=== PATIENT | female | born 1955 | race Caucasian/White ===

== ENCOUNTER 2020-05-10 02:35 | Inpatient (IN) ==
[2020-05-10] MEDS ORDERED: Naloxone 0.4 MG/ML INJ IVP PRN (07:54)
[2020-05-10] MEDS ORDERED: *HR* HYDROcodone/Acet 5/325 mg TABLET PO PRN (07:54)
[2020-05-10] MEDS ORDERED: Ondansetron 4 MG/2 ML VIAL IVP PRN (07:54)
[2020-05-10] MEDS ORDERED: Acetaminophen 325 MG TABLET PO PRN (07:54)
[2020-05-10] MEDS ORDERED: *HR* OxyCODONE Immed Rel 5 MG TABLET PO PRN (07:54)
[2020-05-10] MEDS ORDERED: Dextrose Gel 15 GM/37.5 ML TUBE PO PRN ×2 (07:57)
[2020-05-10] MEDS ORDERED: *HR* Dextrose 50 % in Water (Vial) 50 ML VIAL IVP PRN (07:57)
[2020-05-10] MEDS ORDERED: D5% in Water 1,000 ML IVC PRN (07:57)
[2020-05-10 08:53] LABS: Basophils % 0.2 %; Eosinophils % 0.3 %; Hematocrit 39.9 % (35.3-44.9); Hemoglobin 12.7 g/dL (11.5-15.4); Immature Granulocytes % 0.3 % (0-4); Lymphocytes # 3.9 K/mcL (0.6-4.6); Lymphocytes % 27.7 %; Mean Corpuscular HGB Conc 31.8 g/dL (31.6-35.5); Mean Corpuscular Hemoglobin 30.8 pg (28.0-33.3); Mean Corpuscular Volume 96.8 fL (83.0-100.0); Mean Platelet Volume 9.9 fL (9.4-12.4); Monocytes # 2.1 K/mcL (0.0-1.3); Neutrophils # 7.9 K/mcL (1.6-8.9); Platelet Count 325 K/mcL (140-400); Red Blood Count 4.12 M/mcL (3.82-4.97); Red Cell Distribution Width 14.2 % (11.5-14.5); Segmented Neutrophils % 56.5 %
[2020-05-10 09:17] LABS: BUN/Creatinine Ratio 15 (6-26); Blood Urea Nitrogen 15 mg/dL (8-23); Carbon Dioxide 28 mEq/L (23-29); Chloride 102 mEq/L (98-107); Glucose 163 mg/dL (70-105); Osmolality,Calculated 286 (280-300); Potassium 4.3 mEq/L (3.5-5.1); Sodium 136 mEq/L (136-145); eGFR For African Americans > 60 (> 60); eGFR For Non-African Americans 57 (> 60)
[2020-05-10] MEDS ORDERED: *HR* HYDROmorphone 2 MG/ML SYRINGE IVP PRN (11:24)
[2020-05-10] MEDS: Gabapentin 100 MG CAPSULE PO SCH ×3 (11:30→20:01)
[2020-05-10] MEDS: Insulin LISPRO 300 UNITS/3 ML VIAL SQ SCH ×2 (11:30→17:09)
[2020-05-10] MEDS: *HR* HYDROcodone/Acet 7.5/325 mg TABLET PO SCH ×2 (12:07→17:11)
[2020-05-10] MEDS ORDERED: Gadolinium Contrast Agent (WT Based) IV PRN (12:22)
[2020-05-10 12:44] LABS: INR 3.1; Prothrombin Time 35.6 Seconds (9.4-12.1)
[2020-05-10] MEDS ORDERED: *HR* Heparin 5,000 UNIT/ML VIAL SQ SCH (18:00)
[2020-05-10] MEDS ORDERED: *HR* Warfarin 4 MG TABLET PO ONE (18:00)
[2020-05-10] MEDS ORDERED: Warfarin perPT PO PRN (18:00)
[2020-05-10] MEDS: predniSONE 20 MG TABLET PO SCH (18:04)
[2020-05-11] MEDS: *HR* HYDROcodone/Acet 7.5/325 mg TABLET PO SCH ×5 (00:25→23:42)
[2020-05-11] MEDS: Insulin DETEMIR 100 UNIT/ML X5UNITS SQ SCH ×2 (00:25→22:05)
[2020-05-11 01:09] LABS: Bilirubin,Urine Negative (Negative); Blood,Urine Small (Negative); Clarity,Urine Clear (Clear); Color,Urine Light-Yellow (Yellow); Glucose,Urine (UA) Normal (Normal); Ketones,Urine Trace mg/dL (Negative); Leukocyte Esterase,Urine Moderate (Negative); Mucus,Urine Few per lpf (None-Few); Nitrite,Urine Negative (Negative); PH,Urine 5.5 pH Units (5.0-8.0); Protein,Urine Negative (Neg-Trace); RBC,Urine 15-30 per hpf (0-3); Squamous Epithelial Cell,Urine Few per hpf (None-Few); Urobilinogen,Urine Normal (Normal); WBC,Urine 15-30 per hpf (0-3)
[2020-05-11 04:44] LABS: Basophils % 0.3 %; Hematocrit 41.8 % (35.3-44.9); Hemoglobin 12.8 g/dL (11.5-15.4); Immature Granulocytes % 0.6 % (0-4); Lymphocytes # 1.2 K/mcL (0.6-4.6); Lymphocytes % 10.6 %; Mean Corpuscular HGB Conc 30.6 g/dL (31.6-35.5); Mean Corpuscular Hemoglobin 29.7 pg (28.0-33.3); Mean Platelet Volume 10.5 fL (9.4-12.4); Monocytes # 0.8 K/mcL (0.0-1.3); Monocytes % 6.8 %; Neutrophils # 9.5 K/mcL (1.6-8.9); Platelet Count 288 K/mcL (140-400); Red Blood Count 4.31 M/mcL (3.82-4.97); Segmented Neutrophils % 81.7 %; White Blood Count 11.7 K/mcL (4.3-11.1)
[2020-05-11 04:53] LABS: BUN/Creatinine Ratio 15 (6-26); Blood Urea Nitrogen 14 mg/dL (8-23); Calcium 10.1 mg/dL (8.6-10.3); Carbon Dioxide 28 mEq/L (23-29); Chloride 101 mEq/L (98-107); Glucose 190 mg/dL (70-105); Osmolality,Calculated 286 (280-300); Potassium 4.6 mEq/L (3.5-5.1); Sodium 135 mEq/L (136-145); eGFR For African Americans > 60 (> 60); eGFR For Non-African Americans > 60 (> 60)
[2020-05-11 04:59] LABS: INR 3.6; Prothrombin Time 41.4 Seconds (9.4-12.1)
[2020-05-11] MEDS: Levothyroxine 25 MCG TABLET PO SCH (06:39)
[2020-05-11] MEDS ORDERED: carvediloL 6.25 MG TABLET PO SCH (08:00)
[2020-05-11] MEDS ORDERED: Furosemide 20 MG TABLET PO SCH (09:00)
[2020-05-11] MEDS ORDERED: Spironolactone 25 MG TABLET PO SCH (09:00)
[2020-05-11] MEDS: predniSONE 20 MG TABLET PO SCH (11:44)
[2020-05-11] MEDS: BuPROPion XL (24 HR) 150 MG TABLET PO SCH (11:45)
[2020-05-11] MEDS: Aspirin 81 MG TAB.CHEW PO SCH (11:45)
[2020-05-11] MEDS: Magnesium Oxide 400 MG TABLET PO SCH (11:46)
[2020-05-11] MEDS: Furosemide 40 MG TABLET PO SCH (11:46)
[2020-05-11] MEDS: Gabapentin 100 MG CAPSULE PO SCH ×3 (11:46→22:05)
[2020-05-11] MEDS: Insulin LISPRO 300 UNITS/3 ML VIAL SQ SCH ×3 (11:47→18:08)
[2020-05-11] MEDS: polyethylene glycoL 3350 17 GM POWD.PACK PO SCH ×2 (11:50→22:05)
[2020-05-12 02:42] LABS: INR 4.7; Prothrombin Time 53.8 Seconds (9.4-12.1)
[2020-05-12] MEDS: Levothyroxine 25 MCG TABLET PO SCH (06:11)
[2020-05-12] MEDS: *HR* HYDROcodone/Acet 7.5/325 mg TABLET PO SCH ×3 (06:44→17:07)
[2020-05-12] MEDS: Insulin LISPRO 300 UNITS/3 ML VIAL SQ SCH ×3 (08:48→17:07)
[2020-05-12] MEDS: Aspirin 81 MG TAB.CHEW PO SCH (08:53)
[2020-05-12] MEDS: predniSONE 20 MG TABLET PO SCH (08:54)
[2020-05-12] MEDS: polyethylene glycoL 3350 17 GM POWD.PACK PO SCH ×2 (08:54→19:54)
[2020-05-12] MEDS: Magnesium Oxide 400 MG TABLET PO SCH (08:54)
[2020-05-12] MEDS: BuPROPion XL (24 HR) 150 MG TABLET PO SCH (08:55)
[2020-05-12] MEDS: Gabapentin 100 MG CAPSULE PO SCH ×3 (08:59→19:55)
[2020-05-12] MEDS: Furosemide 40 MG TABLET PO SCH (08:59)
[2020-05-12] MEDS: Insulin DETEMIR 100 UNIT/ML X5UNITS SQ SCH (19:54)
[2020-05-13] MEDS: *HR* HYDROcodone/Acet 7.5/325 mg TABLET PO SCH ×4 (00:47→17:08)
[2020-05-13 01:07] LABS: INR 3.4; Prothrombin Time 38.2 Seconds (9.4-12.1)
[2020-05-13 01:11] LABS: Basophils % 0.1 %; Hematocrit 36.9 % (35.3-44.9); Hemoglobin 11.8 g/dL (11.5-15.4); Immature Granulocytes % 0.6 % (0-4); Lymphocytes # 2.2 K/mcL (0.6-4.6); Lymphocytes % 17.5 %; Mean Corpuscular Hemoglobin 30.6 pg (28.0-33.3); Mean Corpuscular Volume 95.8 fL (83.0-100.0); Mean Platelet Volume 10.2 fL (9.4-12.4); Monocytes # 1.3 K/mcL (0.0-1.3); Monocytes % 9.9 %; Neutrophils # 9.2 K/mcL (1.6-8.9); Platelet Count 334 K/mcL (140-400); Red Blood Count 3.85 M/mcL (3.82-4.97); Red Cell Distribution Width 13.7 % (11.5-14.5); Segmented Neutrophils % 71.9 %; White Blood Count 12.8 K/mcL (4.3-11.1)
[2020-05-13 01:24] LABS: BUN/Creatinine Ratio 23 (6-26); Blood Urea Nitrogen 19 mg/dL (8-23); Calcium 10.1 mg/dL (8.6-10.3); Carbon Dioxide 30 mEq/L (23-29); Chloride 99 mEq/L (98-107); Glucose 187 mg/dL (70-105); Osmolality,Calculated 291 (280-300); Sodium 137 mEq/L (136-145); eGFR For African Americans > 60 (> 60); eGFR For Non-African Americans > 60 (> 60)
[2020-05-13] MEDS: Levothyroxine 25 MCG TABLET PO SCH (06:08)
[2020-05-13] MEDS ORDERED: Ketorolac 15 MG/ML VIAL IVP ONE (08:23)
[2020-05-13] MEDS: BuPROPion XL (24 HR) 150 MG TABLET PO SCH (09:16)
[2020-05-13] MEDS: Gabapentin 100 MG CAPSULE PO SCH ×3 (09:16→21:14)
[2020-05-13] MEDS: Magnesium Oxide 400 MG TABLET PO SCH (09:17)
[2020-05-13] MEDS: Aspirin 81 MG TAB.CHEW PO SCH (09:17)
[2020-05-13] MEDS: predniSONE 20 MG TABLET PO SCH (09:17)
[2020-05-13] MEDS: polyethylene glycoL 3350 17 GM POWD.PACK PO SCH ×2 (09:18→21:14)
[2020-05-13] MEDS: Insulin LISPRO 300 UNITS/3 ML VIAL SQ SCH ×3 (09:19→17:09)
[2020-05-13] MEDS: Insulin DETEMIR 100 UNIT/ML X5UNITS SQ SCH (21:14)
[2020-05-14] MEDS: *HR* HYDROcodone/Acet 7.5/325 mg TABLET PO SCH ×4 (00:15→18:05)
[2020-05-14 05:22] LABS: Prothrombin Time 22.2 Seconds (9.4-12.1)
[2020-05-14] MEDS: Levothyroxine 25 MCG TABLET PO SCH (06:57)
[2020-05-14] MEDS: Aspirin 81 MG TAB.CHEW PO SCH (10:43)
[2020-05-14] MEDS: Gabapentin 100 MG CAPSULE PO SCH ×3 (10:43→20:49)
[2020-05-14] MEDS: BuPROPion XL (24 HR) 150 MG TABLET PO SCH (10:44)
[2020-05-14] MEDS: Magnesium Oxide 400 MG TABLET PO SCH (10:44)
[2020-05-14] MEDS: polyethylene glycoL 3350 17 GM POWD.PACK PO SCH ×2 (10:45→20:50)
[2020-05-14] MEDS: Insulin LISPRO 300 UNITS/3 ML VIAL SQ SCH ×3 (10:45→16:58)
[2020-05-14] MEDS: predniSONE 20 MG TABLET PO SCH (16:02)
[2020-05-14] MEDS ORDERED: *HR* Warfarin 4 MG TABLET PO ONE (18:00)
[2020-05-14] MEDS: Insulin DETEMIR 100 UNIT/ML X5UNITS SQ SCH (21:38)
[2020-05-15] MEDS: *HR* HYDROcodone/Acet 7.5/325 mg TABLET PO SCH ×4 (00:12→18:15)
[2020-05-15] MEDS: Levothyroxine 25 MCG TABLET PO SCH (05:56)
[2020-05-15 06:27] LABS: INR 1.6; Prothrombin Time 18.5 Seconds (9.4-12.1)
[2020-05-15] MEDS: predniSONE 20 MG TABLET PO SCH (08:49)
[2020-05-15] MEDS: Aspirin 81 MG TAB.CHEW PO SCH (08:49)
[2020-05-15] MEDS: Gabapentin 100 MG CAPSULE PO SCH ×3 (08:49→19:45)
[2020-05-15] MEDS: BuPROPion XL (24 HR) 150 MG TABLET PO SCH (08:49)
[2020-05-15] MEDS: Furosemide 40 MG TABLET PO SCH (08:50)
[2020-05-15] MEDS: polyethylene glycoL 3350 17 GM POWD.PACK PO SCH ×2 (08:50→20:00)
[2020-05-15] MEDS: Magnesium Oxide 400 MG TABLET PO SCH (08:50)
[2020-05-15] MEDS: Insulin LISPRO 300 UNITS/3 ML VIAL SQ SCH ×3 (11:23→18:18)
[2020-05-15] MEDS ORDERED: *HR* Warfarin 4 MG TABLET PO ONE (18:00)
[2020-05-15] MEDS: Insulin DETEMIR 100 UNIT/ML X5UNITS SQ SCH (19:47)
[2020-05-16] MEDS: *HR* HYDROcodone/Acet 7.5/325 mg TABLET PO SCH ×3 (00:08→13:00)
[2020-05-16 06:05] LABS: INR 1.6; Prothrombin Time 18.4 Seconds (9.4-12.1)
[2020-05-16] MEDS: Levothyroxine 25 MCG TABLET PO SCH (06:23)
[2020-05-16 07:06] VITALS: BP 144/86
[2020-05-16] MEDS: Insulin LISPRO 300 UNITS/3 ML VIAL SQ SCH ×2 (08:49→11:38)
[2020-05-16] MEDS: Magnesium Oxide 400 MG TABLET PO SCH (08:54)
[2020-05-16] MEDS: Gabapentin 100 MG CAPSULE PO SCH ×2 (08:54→14:55)
[2020-05-16] MEDS: BuPROPion XL (24 HR) 150 MG TABLET PO SCH (08:54)
[2020-05-16] MEDS: Furosemide 40 MG TABLET PO SCH (08:55)
[2020-05-16] MEDS: Aspirin 81 MG TAB.CHEW PO SCH (08:55)
[2020-05-16] MEDS: polyethylene glycoL 3350 17 GM POWD.PACK PO SCH (08:55)
[2020-05-16] MEDS ORDERED: *HR* Warfarin 5 MG TABLET PO ONE (18:00)
== END 2020-05-16 16:05 | DRG 552 ==
LOC: CDU → SUATTDRO 03:58 → 3NENU 19:14
PROVIDERS: ADMIT Internal Medicine; ATTEND Internal Medicine